=== PATIENT | female | born 1965 | race Two or more races ===

== ENCOUNTER 2017-09-22 09:59 | Inpatient (IN) | payer OTHER ==
[~2017-09-22] VITALS: Ht 165.1 cm; Wt 66.0 kg
[2017-09-22] MEDS ORDERED: ALBUTEROL SULF 2.5 MG/0.5ML(0.5%) NEB SOLN NEB ONE (10:15)
[2017-09-22] MEDS ORDERED: IPRATROPIUM BROM 0.5 MG/2.5ML INH SOL NEB ONE (10:15)
[2017-09-22 10:50] LABS: Basophils # (auto) 0.1 uL; Basophils % (auto) 0.8 % (0.0-2.0); Eosinophils # (auto) 0.5 uL; Eosinophils % (auto) 7.8 % (0.0-7.0); Hematocrit 47.1 % (36.0-46.0); Hemoglobin 15.9 g/dL (12.2-16.2); Lymphocytes # (auto) 1.3 uL; Lymphocytes % (auto) 20.5 % (10.0-50.0); Mean Corpuscular Hemoglobin 28.3 pg (28.0-32.0); Mean Corpuscular Hgb Conc. 33.7 g/dL (32.0-36.0); Mean Corpuscular Volume 84.2 fL (80.0-100.0); Monocytes # (auto) 0.5 uL; Monocytes % (auto) 8.5 % (0.0-12.0); Neutrophils # (auto) 3.8 uL; Neutrophils % (auto) 62.4 % (37.0-80.0); Nucleated Red Blood Cells % 0.1 %; Platelet Count (auto) 218 10^3/uL (140-450); Red Cell Distribution Width 14.7 % (11.8-14.3); White Blood Cell 6.2 10^3/uL (4.4-10.8)
[2017-09-22 11:11] LABS: Albumin 3.8 g/dL (3.4-5.0); BUN/Creatinine Ratio 16.4; Bilirubin, Total 0.5 mg/dL (0.2-1.0); Calcium 8.9 mg/dL (8.5-10.1); Potassium 3.5 mmol/L (3.5-5.1); Total Protein 7.5 g/dL (6.4-8.2)
[2017-09-22] MEDS ORDERED: SODIUM CHLORIDE 0.9% 1,000 ML IV ONE (13:15)
[2017-09-22] MEDS ORDERED: methylPREDNISolone SOD SUCC 125 MG/2 ML VL IV ONE (13:15)
[2017-09-22] MEDS: SODIUM CHLORIDE 0.9% 1,000 ML IV SCH (15:44)
[2017-09-22] MEDS ORDERED: PROMETHAZINE HCL 25 MG/ML 1ML IV PRN (15:45)
[2017-09-22] MEDS ORDERED: NITROGLYCERIN 0.4 MG SL TAB SL PRN (15:45)
[2017-09-22] MEDS ORDERED: LORazepam 0.5 MG TAB PO PRN (15:45)
[2017-09-22] MEDS ORDERED: LACTULOSE 20Gm/30ML SOLN PO PRN (15:45)
[2017-09-22] MEDS ORDERED: MORPHINE SULFATE 8mg/ml INJ SDV IV PRN ×2 (15:45)
[2017-09-22] MEDS ORDERED: HYDROcodone-ACET 5/325MG TAB PO PRN (15:45)
[2017-09-22] MEDS ORDERED: ACETAMINOPHEN 500 MG TAB PO PRN (15:45)
[2017-09-22] MEDS ORDERED: DOXYCYCLINE HYC 100MG/250ML 250 ML IV SCH (15:45)
[2017-09-22] MEDS ORDERED: TEMAZEPAM 15 MG CAP PO PRN (15:45)
[2017-09-22] MEDS ORDERED: ALBUTEROL SULF 2.5 MG/0.5ML(0.5%) NEB SOLN NEB PRN (15:45)
[2017-09-22] MEDS: methylPREDNISolone SOD SUCC 40 MG/ML VL IV SCH (18:14)
[2017-09-22] MEDS ORDERED: ENALAPRILAT 1.25 MG/ML-1ML VIAL IV PRN (18:15)
[2017-09-22] MEDS ORDERED: ENALAPRIL MALEATE 2.5 MG TAB PO ONE (18:15)
[2017-09-22] MEDS: IPRATROPIUM BROM 0.5 MG/2.5ML INH SOL NEB SCH (18:44)
[2017-09-22] MEDS: ALBUTEROL SULF 2.5 MG/0.5ML(0.5%) NEB SOLN NEB SCH (18:44)
[2017-09-22 20:00] VITALS: BP 151/101
[2017-09-22 22:00] VITALS: BP 175/58
[2017-09-22] MEDS: DOXYCYCLINE HYC 100MG/250ML 250 ML IV SCH (22:27)
[2017-09-22] MEDS: FAMOTIDINE 20 MG TAB PO SCH (22:28)
[2017-09-23] MEDS: methylPREDNISolone SOD SUCC 40 MG/ML VL IV SCH ×4 (01:36→18:13)
[2017-09-23] MEDS: ALBUTEROL SULF 2.5 MG/0.5ML(0.5%) NEB SOLN NEB SCH ×3 (01:41→18:51)
[2017-09-23] MEDS: IPRATROPIUM BROM 0.5 MG/2.5ML INH SOL NEB SCH ×3 (01:41→18:51)
[2017-09-23 05:00] VITALS: BP 141/80
[2017-09-23] MEDS: SODIUM CHLORIDE 0.9% 1,000 ML IV SCH ×2 (05:04→18:24)
[2017-09-23] MEDS: DOXYCYCLINE HYC 100MG/250ML 250 ML IV SCH ×2 (06:15→18:30)
[2017-09-23 08:17] VITALS: BP 153/87
[2017-09-23] MEDS: ENOXAPARIN SOD 40 MG/0.4 ML SYRINGE SC SCH (10:44)
[2017-09-23] MEDS: FAMOTIDINE 20 MG TAB PO SCH ×2 (10:44→21:49)
[2017-09-23] MEDS: ENALAPRIL MALEATE 2.5 MG TAB PO SCH ×2 (10:45→21:49)
[2017-09-23 13:43] VITALS: BP 148/80
[2017-09-23 16:57] VITALS: BP 141/83
[2017-09-23] MEDS ORDERED: IPRIH INH (18:44)
[2017-09-23] MEDS ORDERED: ALBU1SYP PO (18:44)
[2017-09-23] MEDS ORDERED: FLUT500M2 INH (18:44)
[2017-09-23 20:00] VITALS: BP 145/79
[2017-09-23 21:50] VITALS: BP 145/79
[2017-09-24] MEDS: IPRATROPIUM BROM 0.5 MG/2.5ML INH SOL NEB SCH ×3 (00:39→11:32)
[2017-09-24] MEDS: ALBUTEROL SULF 2.5 MG/0.5ML(0.5%) NEB SOLN NEB SCH ×3 (00:39→11:32)
[2017-09-24] MEDS: methylPREDNISolone SOD SUCC 40 MG/ML VL IV SCH ×3 (01:00→12:00)
[2017-09-24 05:00] VITALS: BP 129/77
[2017-09-24] MEDS: DOXYCYCLINE HYC 100MG/250ML 250 ML IV SCH (06:13)
[2017-09-24] MEDS: SODIUM CHLORIDE 0.9% 1,000 ML IV SCH (07:44)
[2017-09-24 08:00] VITALS: BP 116/65
[2017-09-24 08:38] VITALS: BP 139/78
[2017-09-24] MEDS: ENOXAPARIN SOD 40 MG/0.4 ML SYRINGE SC SCH (09:50)
[2017-09-24] MEDS: FAMOTIDINE 20 MG TAB PO SCH (09:50)
[2017-09-24] MEDS: ENALAPRIL MALEATE 2.5 MG TAB PO SCH (09:51)
[2017-09-24 12:08] VITALS: BP 151/94
== END 2017-09-24 13:53 | disposition home or self-care (01) | DRG 203 ==
LOC: ER 09:59 → TELE 10:00 → TELE-WESTW 17:16
PROVIDERS: ADMIT Internal Medicine; ATTEND Internal Medicine Pulmonary Disease
DX: J45.901 Unspecified asthma with (acute) exacerbation (principal); D72.1 Eosinophilia; G43.909 Migraine, unspecified, not intractable, without status migrainosus; J30.9 Allergic rhinitis, unspecified; I16.0 Hypertensive urgency; I10 Essential (primary) hypertension; Z80.0 Family history of malignant neoplasm of digestive organs; Z80.3 Family history of malignant neoplasm of breast; Z82.49 Family history of ischemic heart disease and other diseases of the circulatory system; Z90.49 Acquired absence of other specified parts of digestive tract; Z90.89 Acquired absence of other organs; Z88.1 Allergy status to other antibiotic agents; Z79.899 Other long term (current) drug therapy
CPT/HCPCS: 36415; 71046; 80053; 85025; 87070; 87205; 94640; 94761; 96361; 96374; J3490

== ENCOUNTER 2018-05-19 21:22 | Emergency (ER) | payer OTHER ==
[~2018-05-19] VITALS: Ht 162.6 cm; Wt 68.0 kg
[~2018-05-19 21:22] MED LIST: ALBU1SYP PO; FLUT500M2 INH; IPRIH INH
[2018-05-19 23:38] LABS: Basophils # (auto) 0 uL; Basophils % (auto) 0.1 % (0.0-2.0); Eosinophils # (auto) 0 uL; Eosinophils % (auto) 0.1 % (0.0-7.0); Hematocrit 46.7 % (36.0-46.0); Hemoglobin 15.4 g/dL (12.2-16.2); Lymphocytes # (auto) 1.3 uL; Lymphocytes % (auto) 13.1 % (10.0-50.0); Mean Corpuscular Hemoglobin 28.2 pg (28.0-32.0); Mean Corpuscular Volume 85.5 fL (80.0-100.0); Monocytes # (auto) 0.9 uL; Monocytes % (auto) 8.8 % (0.0-12.0); Neutrophils # (auto) 7.6 uL; Neutrophils % (auto) 77.9 % (37.0-80.0); Platelet Count (auto) 240 10^3/uL (140-450); Red Blood Cells 5.47 10^6/uL (4.0-5.20); Red Cell Distribution Width 14.2 % (11.8-14.3); White Blood Cell 9.8 10^3/uL (4.4-10.8)
[2018-05-19 23:53] LABS: Albumin 3.9 g/dL (3.4-5.0); BUN/Creatinine Ratio 21.5; Calcium 8.1 mg/dL (8.5-10.1); Potassium 3.1 mmol/L (3.5-5.1)
[2018-05-19 23:58] LABS: Bilirubin, Total 0.4 mg/dL (0.2-1.0); Total Protein 7.4 g/dL (6.4-8.2)
[2018-05-20 04:00] VITALS: BP 168/89
== END 2018-05-20 04:46 | disposition home or self-care (01) ==
LOC: EDBD 21:22 → ER 21:24
CPT/HCPCS: 36415; 70450; 70486; 71045; 72125; 80053; 84484; 85025